=== PATIENT | female | born 1960 | race Caucasian/White ===

== ENCOUNTER 2025-05-30 11:27 | Emergency (ER) | payer MEDICARE ==
[2025-05-30] MEDS: Amoxicillin/Clavulanate K 875-125 MG Tab PO ONE (12:12)
== END 2025-05-30 13:00 | disposition home or self-care (01) ==
LOC: JD.ED 11:27
DX: S61.552A Open bite of left wrist, initial encounter (principal); I10 Essential (primary) hypertension; Z88.2 Allergy status to sulfonamides; W54.0XXA Bitten by dog, initial encounter
CPT/HCPCS: 12002; 99283; A9270; J2003